=== PATIENT | male | born 1965 | race Caucasian/White ===

== ENCOUNTER 2018-10-25 09:13 | Outpatient (CLI) | payer OTHER ==
--- NOTE | 2018-10-25 15:30 | XRAY Report ---
Reason: L ANKLE PAIN Procedure Date: 10/25/2018 Accession Number: [id number] / [id number] Procedure: XR - Ankle 3 View LT CPT Code: FULL RESULT: EXAM: LEFT ANKLE RADIOGRAPHY EXAM DATE: 10/25/2018 09:35 AM. CLINICAL HISTORY: L ANKLE PAIN. COMPARISON: None. TECHNIQUE: 3 views. FINDINGS: Bones: Small Achilles tendon and plantar heel spurs No fractures or bone lesions. Joints: Normal. No effusion. No subluxations. The ankle mortise is normally aligned. Soft Tissues: Soft tissue swelling. IMPRESSION: Negative for fracture RADIA
== END 2018-10-25 09:14 | disposition home or self-care (01) ==
LOC: DI 09:13
PROVIDERS: ATTEND Physician Assistant
DX: M25.572 Pain in left ankle and joints of left foot (principal)